=== PATIENT | male | born 1950 | race African-American/Black ===

== ENCOUNTER 2019-01-08 12:35 | Inpatient (IN) | payer MEDICARE, MEDICAID ==
[~2019-01-08] VITALS: Ht 180.3 cm; Wt 73.0 kg
[2019-01-08] MEDS ORDERED: CLOP75TA16 PO (12:44)
[2019-01-08] MEDS ORDERED: LISI2.5T47 PO (12:44)
[2019-01-08] MEDS ORDERED: ONDANSETRON HCL 4MG/2ML INJ IV STA (13:31)
[2019-01-08] MEDS ORDERED: SODIUM CHLORIDE 0.9% 1,000 ML IV ONE ×2 (13:31→15:15)
[2019-01-08 14:03] LABS: HEMATOCRIT. 40.8 % (42.0-52.0); HEMOGLOBIN. 12.7 g/dL (14.0-18.0); MEAN CORPUSCULAR HEMOGLOBIN 30.3 pg (28.0-32.0); MEAN CORPUSCULAR VOLUME 97.6 fL (80.0-94.0); MEAN PLATELET VOLUME 8.6 fl (7.4-10.4); PLATELET 278 x1000/uL (130-400); RED BLOOD CELL COUNT 4.18 mill/uL (4.7-6.1); RED CELL DISTRIBUTION WIDTH 15.5 % (11.6-14.6)
[2019-01-08 14:11] LABS: CHLORIDE 98 mEq/L (98-107)
[2019-01-08 14:22] LABS: CLARITY URINE CLEAR (CLEAR); COLOR URINE YELLOW (YELLOW); KETONES URINE 3+ (NEGATIVE); LEUKOCYTE ESTERASE URINE NEGATIVE (NEGATIVE); NITRITE URINE NEGATIVE (NEGATIVE); OCCULT BLOOD URINE NEGATIVE (NEGATIVE); PROTEIN URINE TRACE (NEGATIVE); SPECIFIC GRAVITY URINE 1.018 (1.005-1.030); UROBILINOGEN URINE 0.2 E.U./dL (0.2-1.0)
[2019-01-08 14:23] LABS: PLATELET ESTIMATE NORMAL
[2019-01-08 14:24] LABS: PROTHROMBIN TIME 10.2 sec (9.1-11.1)
[2019-01-08] MEDS ORDERED: INSULIN REGULAR (DRIP) 100 UNITS in SODIUM CHLORIDE 0.9% 100 ML IV ONE (15:00)
[2019-01-08 15:39] LABS: BG CARBOXYHEMOGLOBIN 0.3 % (0.5-1.5); BG DEOXYHEMOGLOBIN 4.1 % (0.0-5.0); BG FRACTION INSPIRED OXYGEN 21; BG METHEMOGLOBIN 0.3 % (0.0-1.5); BG OXYGEN SATURATION 95.9 % (92.0-98.5); BG OXYHEMOGLOBIN 95.3 % (94.0-97.0); BG PH 7.236 (7.350-7.450); BG SAMPLE SITE RIGHT BRACHIAL; BG TOTAL HEMOGLOBIN 11.8 g/dL (12.0-18.0); BG VENT MODE ROOM AIR
[2019-01-08] MEDS ORDERED: INSULIN REGULAR (DRIP) 100 UNITS in SODIUM CHLORIDE 0.9% 99 ML IV ONE (16:00)
[2019-01-08] MEDS ORDERED: IOHEXOL-300 100 ML BOTTLE ONE (17:27)
[2019-01-08] MEDS ORDERED: ACETAMINOPHEN 325MG TABLET PO PRN (18:00)
[2019-01-08] MEDS ORDERED: ONDANSETRON HCL 4MG/2ML INJ IV PRN (18:00)
[2019-01-08] MEDS: SODIUM CHLORIDE 0.9% 1,000 ML IV SCH ×2 (18:10→23:00)
[2019-01-08 18:52] LABS: CHLORIDE 101 mEq/L (98-107)
[2019-01-08 23:27] LABS: CHLORIDE 107 mEq/L (98-107)
[2019-01-09] MEDS: SODIUM CHLORIDE 0.9% 1,000 ML IV SCH ×2 (04:00→08:22)
[2019-01-09 04:28] LABS: BASOPHILS % 0.3 % (0.0-2.0); HEMATOCRIT. 36.1 % (42.0-52.0); HEMOGLOBIN. 11.8 g/dL (14.0-18.0); LYMPHOCYTES % 8.4 % (20.0-50.0); MEAN CORPUSCULAR HEMOGLOBIN 30.1 pg (28.0-32.0); MEAN CORPUSCULAR VOLUME 92.3 fL (80.0-94.0); MEAN PLATELET VOLUME 7.6 fl (7.4-10.4); MONOCYTES % 5.7 % (2.0-8.0); NEUTROPHILS % 85.6 % (40.0-76.0); PLATELET 282 x1000/uL (130-400); RED BLOOD CELL COUNT 3.92 mill/uL (4.7-6.1); RED CELL DISTRIBUTION WIDTH 14.9 % (11.6-14.6)
[2019-01-09 04:38] LABS: CHLORIDE 112 mEq/L (98-107)
[2019-01-09 08:04] LABS: CHLORIDE 111 mEq/L (98-107)
[2019-01-09] MEDS ORDERED: PANTOPRAZOLE SODIUM 40 MG/VIAL IV NR (10:30)
[2019-01-09] MEDS ORDERED: TAMSULOSIN HCL 0.4MG SR CAPSULE PO NR (10:30)
[2019-01-09] MEDS: CLONIDINE 0.1MG TABLET PO PRN (10:40)
[2019-01-09] MEDS ORDERED: DEXTROSE 50% WATER 50ML SYRINGE IV PRN (10:45)
[2019-01-09] MEDS: INSULIN LISPRO 100 UNITS/ML SUBCUT SCH ×4 (13:00→21:43)
[2019-01-09] MEDS: BLOOD SUGAR DIAGNOSTIC STRIP TEST SCH ×3 (13:00→21:00)
[2019-01-09] MEDS ORDERED: PANTOPRAZOLE SODIUM 40 MG/VIAL IV SCH (13:00)
[2019-01-09 14:50] VITALS: BP 154/67
[2019-01-09] MEDS ORDERED: VANCOMYCIN 1500MG in DEXTROSE 5% WATER 250ML IV SCH (16:00)
[2019-01-09] MEDS: PIPERACILLIN/TAZ 3.375G PREMIX 50 ML IV SCH ×2 (16:43→21:44)
[2019-01-09] MEDS: CLOPIDOGREL 75MG TABLET PO SCH (16:53)
[2019-01-09] MEDS: TAMSULOSIN HCL 0.4MG SR CAPSULE PO SCH (16:54)
[2019-01-09 20:00] VITALS: BP 128/89
[2019-01-09] MEDS: METOPROLOL TARTRATE 50MG TABLET PO SCH (21:41)
[2019-01-09] MEDS: AMLODIPINE 5MG TABLET PO SCH (21:41)
[2019-01-09] MEDS: INSULIN GLARGINE UD 100 UNITS/ML SYR SUBCUT SCH (21:43)
[2019-01-09] MEDS ORDERED: INSULIN GLARGINE UD 100 UNITS/ML SYR SUBCUT SCH (22:00)
[2019-01-10] VITALS: BP 133/66
[2019-01-10 04:00] VITALS: BP 115/59
[2019-01-10] MEDS: VANCOMYCIN 750 MG PREMIX 150 ML IV SCH ×2 (06:07→17:31)
[2019-01-10] MEDS: PIPERACILLIN/TAZ 3.375G PREMIX 50 ML IV SCH ×3 (06:07→20:26)
[2019-01-10 06:52] LABS: BASOPHILS % 0.2 % (0.0-2.0); HEMATOCRIT. 33.7 % (42.0-52.0); HEMOGLOBIN. 11.1 g/dL (14.0-18.0); MEAN CORPUSCULAR HEMOGLOBIN 30.6 pg (28.0-32.0); MEAN CORPUSCULAR VOLUME 92.7 fL (80.0-94.0); MONOCYTES % 5.8 % (2.0-8.0); PLATELET 253 x1000/uL (130-400); RED BLOOD CELL COUNT 3.63 mill/uL (4.7-6.1); RED CELL DISTRIBUTION WIDTH 14.7 % (11.6-14.6)
[2019-01-10 06:58] LABS: CHLORIDE 111 mEq/L (98-107)
[2019-01-10] MEDS: BLOOD SUGAR DIAGNOSTIC STRIP TEST SCH ×4 (07:53→21:00)
[2019-01-10 08:00] VITALS: BP 130/64
[2019-01-10] MEDS: INSULIN LISPRO 100 UNITS/ML SUBCUT SCH ×6 (08:45→17:50)
[2019-01-10] MEDS ORDERED: PANTOPRAZOLE SODIUM 40 MG/VIAL IV SCH (09:00)
[2019-01-10] MEDS: INSULIN GLARGINE UD 100 UNITS/ML SYR SUBCUT SCH (10:00)
[2019-01-10] MEDS: METOPROLOL TARTRATE 50MG TABLET PO SCH ×2 (10:10→20:27)
[2019-01-10] MEDS: CLOPIDOGREL 75MG TABLET PO SCH (10:10)
[2019-01-10] MEDS: AMLODIPINE 5MG TABLET PO SCH ×2 (10:10→20:27)
[2019-01-10] MEDS: TAMSULOSIN HCL 0.4MG SR CAPSULE PO SCH (10:11)
[2019-01-10 11:51] VITALS: BP 135/69
[2019-01-10 16:00] VITALS: BP 165/72
[2019-01-10 20:00] VITALS: BP 179/84
[2019-01-11] VITALS: BP 162/74
[2019-01-11] MEDS: INSULIN GLARGINE UD 100 UNITS/ML SYR SUBCUT SCH ×2 (00:45→11:01)
[2019-01-11] MEDS: INSULIN LISPRO 100 UNITS/ML SUBCUT SCH ×3 (00:45→10:08)
[2019-01-11] MEDS: CLONIDINE 0.1MG TABLET PO PRN (00:50)
[2019-01-11 04:00] VITALS: BP 121/67
[2019-01-11] MEDS: PIPERACILLIN/TAZ 3.375G PREMIX 50 ML IV SCH (05:57)
[2019-01-11] MEDS: VANCOMYCIN 750 MG PREMIX 150 ML IV SCH (05:57)
[2019-01-11 06:31] LABS: BASOPHILS % 0.2 % (0.0-2.0); EOSINOPHILS % 0.1 % (0.0-5.0); HEMATOCRIT. 33.2 % (42.0-52.0); LYMPHOCYTES % 15.9 % (20.0-50.0); MEAN CORPUSCULAR HEMOGLOBIN 30.7 pg (28.0-32.0); MEAN CORPUSCULAR VOLUME 92.4 fL (80.0-94.0); MEAN PLATELET VOLUME 8.2 fl (7.4-10.4); MONOCYTES % 5.1 % (2.0-8.0); NEUTROPHILS % 78.7 % (40.0-76.0); PLATELET 229 x1000/uL (130-400)
[2019-01-11] MEDS: BLOOD SUGAR DIAGNOSTIC STRIP TEST SCH (07:20)
[2019-01-11 08:08] LABS: CHLORIDE 107 mEq/L (98-107)
[2019-01-11] MEDS: TAMSULOSIN HCL 0.4MG SR CAPSULE PO SCH (09:49)
[2019-01-11] MEDS: AMLODIPINE 5MG TABLET PO SCH (09:50)
[2019-01-11] MEDS: CLOPIDOGREL 75MG TABLET PO SCH (09:50)
[2019-01-11] MEDS: METOPROLOL TARTRATE 50MG TABLET PO SCH (09:50)
[2019-01-11 11:14] VITALS: BP 129/63
== END 2019-01-11 12:18 | disposition home or self-care (01) | DRG 871 ==
LOC: ER 12:35 → 6EST 15:04 → EDBEDREQ 01-09 11:10 → EDBEDREQSVC 01-09 11:10 → ENRESERV 01-09 11:12
PROVIDERS: ADMIT Internal Medicine; ATTEND Internal Medicine
DX: A41.9 Sepsis, unspecified organism (principal); G93.41 Metabolic encephalopathy; E87.1 Hypo-osmolality and hyponatremia; K76.0 Fatty (change of) liver, not elsewhere classified; E11.9 Type 2 diabetes mellitus without complications; I10 Essential (primary) hypertension; D64.9 Anemia, unspecified; Z79.4 Long term (current) use of insulin; Z86.73 Personal history of transient ischemic attack (TIA), and cerebral infarction without residual deficits
CPT/HCPCS: 36415; 36600; 71045; 74177; 80048; 80202; 82010; 82374; 82375; 82805; 82962; 83036; 83605; 84145; 84484; 93970; 96361; 96365; 96375; 99291; C9113; J1815; J2405; J2543; J3370; J7030; J7050; J7060; Q9967

== ENCOUNTER 2020-02-18 09:21 | Inpatient (IN) | payer MEDICARE, MEDICAID ==
[~2020-02-18] VITALS: Ht 172.7 cm; Wt 63.0 kg
[2020-02-18] VITALS (16 sets, daily range): BP systolic 115–147; BP diastolic 64–82
[~2020-02-18 09:21] MED LIST: CLOP75TA4 PO
[2020-02-18] MEDS ORDERED: SODIUM CHLORIDE 0.9% 1,000 ML IV ONE ×3 (09:39→10:45)
[2020-02-18 09:59] LABS: BASOPHILS % 0.7 % (0.0-2.0); EOSINOPHILS % 0.2 % (0.0-5.0); HEMATOCRIT. 42.9 % (42.0-52.0); HEMOGLOBIN. 12.2 g/dL (14.0-18.0); LYMPHOCYTES % 13.3 % (20.0-50.0); MEAN CORPUSCULAR HEMOGLOBIN 32.1 pg (28.0-32.0); MEAN CORPUSCULAR VOLUME 112.4 fL (80.0-94.0); MEAN PLATELET VOLUME 8.3 fl (7.4-10.4); MONOCYTES % 2.8 % (2.0-8.0); PLATELET 330 x1000/uL (130-400); RED BLOOD CELL COUNT 3.81 mill/uL (4.7-6.1); RED CELL DISTRIBUTION WIDTH 18.1 % (11.6-14.6)
[2020-02-18 10:09] LABS: CHLORIDE 94 mEq/L (98-107)
[2020-02-18 10:23] LABS: BETA HYDROXYBUTYRATE > 10.0 mMol/L (0.0-0.3)
[2020-02-18 10:31] LABS: BG BASE EXCESS -25.8 mmol/L (-2.0-2.0); BG CARBOXYHEMOGLOBIN 0.3 % (0.5-1.5); BG FRACTION INSPIRED OXYGEN 21; BG HCO3 ACT 2.7 mmol/L (22.0-26.0); BG METHEMOGLOBIN 0.3 % (0.0-1.5); BG OXYHEMOGLOBIN 97.4 % (94.0-97.0); BG PH 7.042 (7.350-7.450); BG SAMPLE SITE RIGHT RADIAL; BG TOTAL HEMOGLOBIN 11.9 g/dL (12.0-18.0); BG VENT MODE ROOM AIR
[2020-02-18 10:44] LABS: PLATELET ESTIMATE NORMAL
[2020-02-18] MEDS ORDERED: SODIUM BICARBONATE 8.4% 1 MEQ/ML 50ML SYR IV ONE ×2 (10:45→11:30)
[2020-02-18] MEDS ORDERED: INSULIN REGULAR (DRIP) 100 UNITS in SODIUM CHLORIDE 0.9% 99 ML IV ONE (10:45)
[2020-02-18] MEDS ORDERED: CALCIUM GLUCONATE 100MG/ML 10ML VIAL IV ONE (11:00)
[2020-02-18] MEDS ORDERED: INSULIN REGULAR (DRIP) 100 UNITS in SODIUM CHLORIDE 0.9% 99 ML IV NR (11:00)
[2020-02-18] MEDS ORDERED: ONDANSETRON HCL 4MG/2ML INJ IV STA (11:17)
[2020-02-18] MEDS ORDERED: MORPHINE SULFATE 4 MG/ML CPJ (NOT FOR IM USE) IV STA (11:17)
[2020-02-18] MEDS: SODIUM CHLORIDE 0.9% 1,000 ML IV SCH ×2 (11:18→15:58)
[2020-02-18] MEDS ORDERED: INSULIN REGULAR (DRIP) 100 UNITS in SODIUM CHLORIDE 0.9% 100 ML IV SCH ×2 (11:18→15:00)
[2020-02-18] MEDS ORDERED: MAGNESIUM/ALUMINUM HYDROXIDE/SIMETHICONE 30ML UDC PO PRN (11:30)
[2020-02-18] MEDS ORDERED: DEXTROSE 50% WATER 50ML SYRINGE IV PRN (11:30)
[2020-02-18] MEDS ORDERED: ACETAMINOPHEN 325MG TABLET PO PRN ×2 (11:30)
[2020-02-18] MEDS ORDERED: IPRATROPIUM/ALBUTEROL 0.5-3(2.5)MG/3ML NEB ORI PRN (11:30)
[2020-02-18] MEDS ORDERED: ONDANSETRON HCL 4MG/2ML INJ IV PRN (11:30)
[2020-02-18] MEDS ORDERED: GUAIFENESIN 200MG/10ML SUGAR FREE UDC PO PRN (11:30)
[2020-02-18] MEDS ORDERED: ZOLPIDEM TARTRATE 5MG TABLET PO PRN (11:30)
[2020-02-18] MEDS: ENOXAPARIN 40MG/0.4ML SYR SUBCUT SCH (12:00)
[2020-02-18] MEDS ORDERED: LEVOFLOXACIN 500MG PREMIX 100ML IV NR (12:00)
[2020-02-18] MEDS: BLOOD SUGAR DIAGNOSTIC STRIP TEST SCH ×12 (12:01→23:43)
[2020-02-18 12:14] LABS: CLARITY URINE CLEAR (CLEAR); COLOR URINE YELLOW (YELLOW); KETONES URINE 3+ (NEGATIVE); LEUKOCYTE ESTERASE URINE NEGATIVE (NEGATIVE); NITRITE URINE NEGATIVE (NEGATIVE); OCCULT BLOOD URINE NEGATIVE (NEGATIVE); PROTEIN URINE 1+ (NEGATIVE); SPECIFIC GRAVITY URINE 1.021 (1.005-1.030); UROBILINOGEN URINE 0.2 E.U./dL (0.2-1.0)
[2020-02-18 12:34] LABS: *COCAINE SCREEN URINE NEGATIVE (NEGATIVE); METHADONE URINE SCREEN NEGATIVE (NEGATIVE); OPIATES URINE SCREEN NEGATIVE (NEGATIVE)
[2020-02-18 12:35] LABS: *AMPHETAMINES SCREEN URINE NEGATIVE (NEGATIVE); *BARBITURATES SCREEN URINE NEGATIVE (NEGATIVE); *BENZODIAZEPINES SCREEN URINE NEGATIVE (NEGATIVE); CANNABINOID URINE SCREEN NEGATIVE (NEGATIVE); PHENCYCLIDINE URINE SCREEN NEGATIVE (NEGATIVE)
[2020-02-18] MEDS ORDERED: KETOROLAC 15MG/ML VIAL IV PRN (14:02)
[2020-02-18] MEDS ORDERED: ASPI-1497 PO (15:38)
[2020-02-18] MEDS ORDERED: METO5TAB86 MT (15:38)
[2020-02-18 16:53] LABS: CREATINE KINASE 518 IU/L (39-308); CREATINE KINASE MB FRACTION 1.7 ng/mL (0.5-3.6)
[2020-02-18 17:00] LABS: CHLORIDE 107 mEq/L (98-107)
[2020-02-18 17:05] LABS: PHOSPHORUS 2.7 mg/dL (2.5-4.9)
[2020-02-18 17:08] LABS: TOTAL IRON BINDING CAPACITY 338 ug/dL (250-450)
[2020-02-18] MEDS ORDERED: POTASSIUM CHLORIDE 20MEQ/PACKET PO NR (17:47)
[2020-02-18 19:21] LABS: CHLORIDE 110 mEq/L (98-107)
[2020-02-18 19:41] LABS: FOLIC ACID (FOLATE) SERUM 12.9 ng/mL (>5.38)
[2020-02-18] MEDS ORDERED: DEXT 5%/0.2% NACL KCL 20MEQ/L 1,000 ML IV SCH (20:30)
[2020-02-18] MEDS: DEXTROSE 50% WATER 50ML SYRINGE IV PRN (21:10)
[2020-02-18] MEDS: FAMOTIDINE 20MG TABLET PO SCH (21:27)
[2020-02-18] MEDS: ASCORBIC ACID 500 MG TABLET PO SCH (21:27)
[2020-02-18] MEDS: DEXT 5%/0.9% NACL KCL 20MEQ/L 1,000 ML IV SCH (22:54)
[2020-02-19] VITALS (32 sets, daily range): BP systolic 113–185; BP diastolic 59–93
[2020-02-19 00:47] LABS: CREATINE KINASE MB FRACTION 2.3 ng/mL (0.5-3.6)
[2020-02-19 00:58] LABS: CHLORIDE 112 mEq/L (98-107)
[2020-02-19] MEDS: BLOOD SUGAR DIAGNOSTIC STRIP TEST SCH ×11 (01:12→21:18)
[2020-02-19] MEDS: DEXT 5%/0.9% NACL KCL 20MEQ/L 1,000 ML IV SCH (05:14)
[2020-02-19 05:52] LABS: BASOPHILS % 0.1 % (0.0-2.0); EOSINOPHILS % 0.7 % (0.0-5.0); HEMATOCRIT. 31.1 % (42.0-52.0); HEMOGLOBIN. 10.5 g/dL (14.0-18.0); MEAN CORPUSCULAR HEMOGLOBIN 32.5 pg (28.0-32.0); MEAN CORPUSCULAR VOLUME 96.4 fL (80.0-94.0); MEAN PLATELET VOLUME 7.4 fl (7.4-10.4); MONOCYTES % 7.9 % (2.0-8.0); NEUTROPHILS % 68.3 % (40.0-76.0); PLATELET 268 x1000/uL (130-400); RED BLOOD CELL COUNT 3.22 mill/uL (4.7-6.1); RED CELL DISTRIBUTION WIDTH 16.5 % (11.6-14.6)
[2020-02-19 06:38] LABS: CHLORIDE 114 mEq/L (98-107)
[2020-02-19] MEDS ORDERED: DEXTROSE 50% WATER 50ML SYRINGE IV PRN (07:00)
[2020-02-19] MEDS ORDERED: POTASSIUM PHOS,M-BASIC-D-BASIC 30 MMOL in DEXTROSE 5% WATER 1,000 ML IV SCH (07:00)
[2020-02-19] MEDS ORDERED: LIDOCAINE HCL 1% 20ML VIAL (Pyxis) INJ ONE (08:11)
[2020-02-19] MEDS: INSULIN LISPRO 100 UNITS/ML SUBCUT SCH ×7 (08:20→21:00)
[2020-02-19 09:02] LABS: CHLORIDE 112 mEq/L (98-107)
[2020-02-19 09:13] LABS: PHOSPHORUS 1.9 mg/dL (2.5-4.9)
[2020-02-19] MEDS: ASCORBIC ACID 500 MG TABLET PO SCH ×2 (09:14→21:25)
[2020-02-19] MEDS: FAMOTIDINE 20MG TABLET PO SCH ×2 (09:14→21:25)
[2020-02-19] MEDS ORDERED: LEVOFLOXACIN 500MG PREMIX 100 ML IV SCH (11:00)
[2020-02-19] MEDS: INSULIN GLARGINE UD 100 UNITS/ML SYR SUBCUT SCH (11:03)
[2020-02-19] MEDS: ENOXAPARIN 40MG/0.4ML SYR SUBCUT SCH (11:19)
[2020-02-19] MEDS: LEVOFLOXACIN 500MG PREMIX 100 ML IV SCH (14:21)
[2020-02-19] MEDS: CLONIDINE 0.1MG TABLET PO PRN (17:11)
[2020-02-19 21:43] LABS: CHLORIDE 108 mEq/L (98-107)
[2020-02-20] VITALS (32 sets, daily range): BP systolic 92–178; BP diastolic 55–93
[2020-02-20 05:59] LABS: CHLORIDE 105 mEq/L (98-107)
[2020-02-20 06:02] LABS: BASOPHILS % 0.2 % (0.0-2.0); EOSINOPHILS % 1.1 % (0.0-5.0); HEMATOCRIT. 28.9 % (42.0-52.0); HEMOGLOBIN. 9.8 g/dL (14.0-18.0); LYMPHOCYTES % 28.8 % (20.0-50.0); MEAN CORPUSCULAR HEMOGLOBIN 32.7 pg (28.0-32.0); MEAN CORPUSCULAR VOLUME 96.8 fL (80.0-94.0); MEAN PLATELET VOLUME 7.8 fl (7.4-10.4); MONOCYTES % 6.4 % (2.0-8.0); NEUTROPHILS % 63.5 % (40.0-76.0); PLATELET 196 x1000/uL (130-400); RED BLOOD CELL COUNT 2.99 mill/uL (4.7-6.1); RED CELL DISTRIBUTION WIDTH 16.2 % (11.6-14.6)
[2020-02-20] MEDS: CLONIDINE 0.1MG TABLET PO PRN (06:08)
[2020-02-20] MEDS: INSULIN LISPRO 100 UNITS/ML SUBCUT SCH ×7 (07:50→21:00)
[2020-02-20] MEDS: BLOOD SUGAR DIAGNOSTIC STRIP TEST SCH ×4 (08:30→21:38)
[2020-02-20] MEDS: ASCORBIC ACID 500 MG TABLET PO SCH ×2 (08:58→21:56)
[2020-02-20] MEDS: FAMOTIDINE 20MG TABLET PO SCH ×2 (08:58→21:55)
[2020-02-20] MEDS: INSULIN GLARGINE UD 100 UNITS/ML SYR SUBCUT SCH (10:34)
[2020-02-20] MEDS ORDERED: POTASSIUM PHOS,M-BASIC-D-BASIC 15 MMOL in DEXT 5% WATER 245 ML IV SCH (11:00)
[2020-02-20] MEDS: ENOXAPARIN 40MG/0.4ML SYR SUBCUT SCH (12:29)
[2020-02-20] MEDS: LEVOFLOXACIN 500MG PREMIX 100 ML IV SCH (12:29)
[2020-02-21] VITALS (12 sets, daily range): BP systolic 95–163; BP diastolic 54–94
[2020-02-21] MEDS: INSULIN LISPRO 100 UNITS/ML SUBCUT SCH ×7 (08:00→21:00)
[2020-02-21] MEDS: BLOOD SUGAR DIAGNOSTIC STRIP TEST SCH ×4 (08:20→21:47)
[2020-02-21] MEDS: DEXTROSE 50% WATER 50ML SYRINGE IV PRN (08:48)
[2020-02-21] MEDS: ASCORBIC ACID 500 MG TABLET PO SCH ×3 (09:32→22:03)
[2020-02-21] MEDS: FAMOTIDINE 20MG TABLET PO SCH ×4 (09:32→22:03)
[2020-02-21] MEDS: INSULIN GLARGINE UD 100 UNITS/ML SYR SUBCUT SCH (10:00)
[2020-02-21] MEDS: ENOXAPARIN 40MG/0.4ML SYR SUBCUT SCH (12:01)
[2020-02-21] MEDS: LEVOFLOXACIN 500MG PREMIX 100 ML IV SCH (18:05)
[2020-02-22] VITALS (12 sets, daily range): BP systolic 102–152; BP diastolic 60–90
[2020-02-22] MEDS: BLOOD SUGAR DIAGNOSTIC STRIP TEST SCH ×4 (07:30→20:59)
[2020-02-22] MEDS: INSULIN LISPRO 100 UNITS/ML SUBCUT SCH ×7 (08:00→20:59)
[2020-02-22] MEDS: FAMOTIDINE 20MG TABLET PO SCH ×2 (09:06→20:56)
[2020-02-22] MEDS: ASCORBIC ACID 500 MG TABLET PO SCH ×2 (09:07→20:56)
[2020-02-22] MEDS: DOCUSATE SODIUM 100MG CAPSULE PO PRN (09:07)
[2020-02-22] MEDS: INSULIN GLARGINE UD 100 UNITS/ML SYR SUBCUT SCH (09:11)
[2020-02-22] MEDS ORDERED: LEVOFLOXACIN 500MG TABLET PO SCH (11:00)
[2020-02-22] MEDS: ENOXAPARIN 40MG/0.4ML SYR SUBCUT SCH (11:30)
[2020-02-22] MEDS: DEXTROSE 50% WATER 50ML SYRINGE IV PRN (17:41)
[2020-02-23] VITALS (7 sets, daily range): BP systolic 98–135; BP diastolic 57–83
[2020-02-23] MEDS: BLOOD SUGAR DIAGNOSTIC STRIP TEST SCH ×4 (06:45→20:40)
[2020-02-23] MEDS: INSULIN LISPRO 100 UNITS/ML SUBCUT SCH ×7 (07:30→20:40)
[2020-02-23] MEDS: INSULIN GLARGINE UD 100 UNITS/ML SYR SUBCUT SCH (09:19)
[2020-02-23] MEDS: ASCORBIC ACID 500 MG TABLET PO SCH ×2 (09:33→20:35)
[2020-02-23] MEDS: FAMOTIDINE 20MG TABLET PO SCH ×2 (09:33→20:35)
[2020-02-23] MEDS: ENOXAPARIN 40MG/0.4ML SYR SUBCUT SCH (11:55)
[2020-02-23] MEDS: DOCUSATE SODIUM 100MG CAPSULE PO PRN (22:56)
[2020-02-24] VITALS (10 sets, daily range): BP systolic 89–149; BP diastolic 56–83
[2020-02-24] MEDS: BLOOD SUGAR DIAGNOSTIC STRIP TEST SCH ×4 (06:36→20:58)
[2020-02-24] MEDS: INSULIN LISPRO 100 UNITS/ML SUBCUT SCH ×7 (07:30→21:00)
[2020-02-24] MEDS ORDERED: INSU100V3 SUBCUT (08:32)
[2020-02-24] MEDS ORDERED: BENA20TA10 MT (08:32)
[2020-02-24] MEDS ORDERED: AMLO10TA80 MT (08:32)
[2020-02-24] MEDS ORDERED: TAMS-11 MT (08:32)
[2020-02-24] MEDS ORDERED: HUM100IN SQ (08:32)
[2020-02-24] MEDS: METOPROLOL TARTRATE 25MG TABLET PO SCH ×2 (09:01→20:58)
[2020-02-24] MEDS: ASCORBIC ACID 500 MG TABLET PO SCH ×2 (09:26→20:58)
[2020-02-24] MEDS: FAMOTIDINE 20MG TABLET PO SCH ×2 (09:26→20:58)
[2020-02-24] MEDS: INSULIN GLARGINE UD 100 UNITS/ML SYR SUBCUT SCH (10:13)
[2020-02-24] MEDS: ENOXAPARIN 40MG/0.4ML SYR SUBCUT SCH ×2 (12:00→12:57)
[2020-02-24] MEDS: SODIUM CHLORIDE 0.9% 1,000 ML IV SCH (13:30)
[2020-02-24 15:50] LABS: T4 FREE 1.09 ng/dL (0.76-1.46)
[2020-02-24 15:51] LABS: CREATINE KINASE 64 IU/L (39-308)
[2020-02-24 15:52] LABS: CREATINE KINASE MB FRACTION < 1.0 ng/mL (0.5-3.6)
[2020-02-24] MEDS: LACTULOSE 20G/30ML UDC PO SCH (22:52)
[2020-02-25] VITALS (7 sets, daily range): BP systolic 112–153; BP diastolic 57–83
[2020-02-25 00:11] LABS: CREATINE KINASE 62 IU/L (39-308)
[2020-02-25 00:12] LABS: CREATINE KINASE MB FRACTION < 1.0 ng/mL (0.5-3.6)
[2020-02-25] MEDS: SODIUM CHLORIDE 0.9% 1,000 ML IV SCH ×2 (04:41→14:10)
[2020-02-25] MEDS: LACTULOSE 20G/30ML UDC PO SCH ×3 (05:32→22:00)
[2020-02-25 08:13] LABS: CREATINE KINASE 50 IU/L (39-308); CREATINE KINASE MB FRACTION < 1.0 ng/mL (0.5-3.6)
[2020-02-25] MEDS: ASCORBIC ACID 500 MG TABLET PO SCH ×2 (09:10→21:53)
[2020-02-25] MEDS: FAMOTIDINE 20MG TABLET PO SCH ×2 (09:10→21:54)
[2020-02-25] MEDS: METOPROLOL TARTRATE 25MG TABLET PO SCH ×2 (09:11→21:00)
[2020-02-25] MEDS: INSULIN LISPRO 100 UNITS/ML SUBCUT SCH ×7 (09:12→21:00)
[2020-02-25] MEDS: BLOOD SUGAR DIAGNOSTIC STRIP TEST SCH ×4 (09:13→21:00)
[2020-02-25] MEDS: INSULIN GLARGINE UD 100 UNITS/ML SYR SUBCUT SCH (10:37)
[2020-02-25] MEDS: ENOXAPARIN 40MG/0.4ML SYR SUBCUT SCH (12:00)
[2020-02-26] VITALS (9 sets, daily range): BP systolic 122–134; BP diastolic 60–77
[2020-02-26] MEDS: SODIUM CHLORIDE 0.9% 1,000 ML IV SCH (01:57)
[2020-02-26] MEDS: LACTULOSE 20G/30ML UDC PO SCH (06:00)
[2020-02-26] MEDS: BLOOD SUGAR DIAGNOSTIC STRIP TEST SCH ×2 (07:30→12:04)
[2020-02-26] MEDS: INSULIN LISPRO 100 UNITS/ML SUBCUT SCH ×4 (08:00→12:09)
[2020-02-26] MEDS: FAMOTIDINE 20MG TABLET PO SCH (08:32)
[2020-02-26] MEDS: ASCORBIC ACID 500 MG TABLET PO SCH (08:32)
[2020-02-26] MEDS: METOPROLOL TARTRATE 25MG TABLET PO SCH (08:32)
[2020-02-26] MEDS: DEXTROSE 50% WATER 50ML SYRINGE IV PRN (08:44)
[2020-02-26] MEDS: INSULIN GLARGINE UD 100 UNITS/ML SYR SUBCUT SCH (10:06)
[2020-02-26] MEDS: ENOXAPARIN 40MG/0.4ML SYR SUBCUT SCH (12:10)
== END 2020-02-26 12:35 | disposition home health service (06) | DRG 91 ==
LOC: ER 09:21 → EDBEDREQ 09:49 → CVICU 10:58 → EDBEDREQSVC 11:05 → EDBEDREQ 11:05 → SUPCPDRO 11:18 → ENRESERV 12:27 → 3WST 14:23 → CVICU 14:25 → 5EST 02-20 17:15
PROVIDERS: ADMIT Internal Medicine; ATTEND Internal Medicine
PROC: 02HV33Z Insertion of Infusion Device into Superior Vena Cava, Percutaneous Approach (ICD-10-PCS; principal; 2020-02-19)
PROC: B548ZZA Ultrasonography of Superior Vena Cava, Guidance (ICD-10-PCS; 2020-02-19)
DX: G92 Toxic encephalopathy (principal); E11.00 Type 2 diabetes mellitus with hyperosmolarity without nonketotic hyperglycemic-hyperosmolar coma (NKHHC); N17.9 Acute kidney failure, unspecified; E87.1 Hypo-osmolality and hyponatremia; E44.0 Moderate protein-calorie malnutrition; I47.1 Supraventricular tachycardia; E87.5 Hyperkalemia; D63.8 Anemia in other chronic diseases classified elsewhere; I10 Essential (primary) hypertension; Z79.4 Long term (current) use of insulin; Z86.73 Personal history of transient ischemic attack (TIA), and cerebral infarction without residual deficits
CPT/HCPCS: 36415; 36600; 71045; 76937; 80048; 80053; 80061; 80305; 81003; 82010; 82375; 82550; 82553; 82607; 82746; 82805; 82962; 83036; 83540; 83550; 83735; 83880; 84100; 84439; 84443; 84484; 85025; 85379; 93005; 93306; 93970; 97116; 97162; 97166; 97530; 99291; C1725; J0610; J1650; J1815; J1956; J2270; J2405; J3490; J7030; J7050; J7060; J7070

== ENCOUNTER 2021-06-01 03:26 | Inpatient (IN) | payer MEDICARE, MEDICAID ==
[2021-06-01] VITALS (19 sets, daily range): BP systolic 110–180; BP diastolic 59–100
[~2021-06-01] VITALS: Ht 180.3 cm; Wt 63.5 kg
[~2021-06-01 03:26] MED LIST changes: +AMLO10TA80 MT; +ASPI-1497 PO; +BENA20TA10 MT; +HUM100IN SQ; +INSU100V3 SUBCUT; +METO5TAB86 MT; +TAMS-11 MT
[2021-06-01] MEDS ORDERED: SODIUM CHLORIDE 0.9% 1,000 ML IV ONE (04:30)
[2021-06-01 04:37] LABS: BASOPHILS % 1.2 % (0.0-2.0); EOSINOPHILS % 1.4 % (0.0-5.0); HEMATOCRIT. 37.8 % (42.0-52.0); HEMOGLOBIN. 12.1 g/dL (14.0-18.0); LYMPHOCYTES % 38.1 % (20.0-50.0); MEAN CORPUSCULAR HEMOGLOBIN 30.7 pg (28.0-32.0); MEAN CORPUSCULAR VOLUME 95.7 fL (80.0-94.0); MEAN PLATELET VOLUME 7.6 fl (7.4-10.4); MONOCYTES % 5.4 % (2.0-8.0); NEUTROPHILS % 53.9 % (40.0-76.0); PLATELET 312 x1000/uL (130-400); RED BLOOD CELL COUNT 3.94 mill/uL (4.7-6.1); RED CELL DISTRIBUTION WIDTH 14.3 % (11.6-14.6)
[2021-06-01 04:50] LABS: CHLORIDE 95 mEq/L (98-107)
[2021-06-01 04:57] LABS: BETA HYDROXYBUTYRATE 4.5 mMol/L (0.0-0.3)
[2021-06-01] MEDS ORDERED: INSULIN REGULAR (DRIP) 100 UNITS in SODIUM CHLORIDE 0.9% 99 ML IV SCH (05:15)
[2021-06-01 05:23] LABS: BG BASE EXCESS -3.8 mmol/L (-2.0-2.0); BG CARBOXYHEMOGLOBIN 0.5 % (0.5-1.5); BG DEOXYHEMOGLOBIN 4.7 % (0.0-5.0); BG FRACTION INSPIRED OXYGEN 21; BG HCO3 ACT 21.8 mmol/L (22.0-26.0); BG METHEMOGLOBIN 0.3 % (0.0-1.5); BG OXYGEN SATURATION 95.3 % (92.0-98.5); BG OXYHEMOGLOBIN 94.5 % (94.0-97.0); BG PCO2 41.3 mmHg (35.0-45.0); BG PO2 84.2 mmHg (75.0-100.0); BG SAMPLE SITE RIGHT RADIAL; BG TOTAL HEMOGLOBIN 12.4 g/dL (12.0-18.0); BG VENT MODE ROOM AIR
[2021-06-01 09:08] LABS: CHLORIDE 101 mEq/L (98-107)
[2021-06-01 09:13] LABS: PHOSPHORUS 2.2 mg/dL (2.5-4.9)
[2021-06-01 09:40] LABS: CLARITY URINE CLEAR (CLEAR); COLOR URINE PALE YELLOW (YELLOW); KETONES URINE 3+ (NEGATIVE); LEUKOCYTE ESTERASE URINE NEGATIVE (NEGATIVE); NITRITE URINE NEGATIVE (NEGATIVE); OCCULT BLOOD URINE TRACE (NEGATIVE); PH URINE 5.5 (4.5-8.0); PROTEIN URINE TRACE (NEGATIVE); SPECIFIC GRAVITY URINE 1.023 (1.005-1.030); UROBILINOGEN URINE 0.2 E.U./dL (0.2-1.0)
[2021-06-01] MEDS: SODIUM CHLORIDE 0.45% 1,000 ML IV SCH ×2 (10:43→20:16)
[2021-06-01] MEDS: AMLODIPINE 10MG TABLET PO SCH (11:49)
[2021-06-01] MEDS: TAMSULOSIN HCL 0.4MG SR CAPSULE PO SCH (11:49)
[2021-06-01] MEDS: ASPIRIN 81MG EC TABLET PO SCH (11:50)
[2021-06-01] MEDS: INSULIN GLARGINE UD 100 UNITS/ML SYR SUBCUT SCH ×2 (11:50→21:12)
[2021-06-01] MEDS: INSULIN LISPRO 100 UNITS/ML SUBCUT SCH ×3 (11:51→21:11)
[2021-06-01] MEDS: CLOPIDOGREL 75MG TABLET PO SCH (11:52)
[2021-06-01] MEDS: BLOOD SUGAR DIAGNOSTIC STRIP TEST SCH ×3 (12:50→21:12)
[2021-06-02] VITALS (7 sets, daily range): BP systolic 106–153; BP diastolic 60–82
[2021-06-02] MEDS: BLOOD SUGAR DIAGNOSTIC STRIP TEST SCH ×4 (06:58→21:00)
[2021-06-02] MEDS: DEXTROSE 50% WATER 50ML SYRINGE IV PRN (07:03)
[2021-06-02] MEDS: SODIUM CHLORIDE 0.45% 1,000 ML IV SCH ×2 (07:21→18:09)
[2021-06-02] MEDS: INSULIN LISPRO 100 UNITS/ML SUBCUT SCH ×4 (07:50→21:19)
[2021-06-02] MEDS: CLOPIDOGREL 75MG TABLET PO SCH (09:03)
[2021-06-02] MEDS: ASPIRIN 81MG EC TABLET PO SCH (09:03)
[2021-06-02] MEDS: AMLODIPINE 10MG TABLET PO SCH (09:04)
[2021-06-02] MEDS: TAMSULOSIN HCL 0.4MG SR CAPSULE PO SCH (09:04)
[2021-06-02] MEDS: INSULIN GLARGINE UD 100 UNITS/ML SYR SUBCUT SCH ×2 (10:25→21:20)
[2021-06-02 14:05] LABS: CHLORIDE 103 mEq/L (98-107)
[2021-06-02 14:12] LABS: PHOSPHORUS 2.7 mg/dL (2.5-4.9)
[2021-06-02 14:14] LABS: LDL CHOLESTEROL 115 mg/dL (5-100)
[2021-06-02 14:15] LABS: HDL CHOLESTEROL 64 mg/dL (40-59)
[2021-06-02 23:22] LABS: BASOPHILS % 0.8 % (0.0-2.0); EOSINOPHILS % 2.5 % (0.0-5.0); HEMATOCRIT. 31.7 % (42.0-52.0); HEMOGLOBIN. 10.5 g/dL (14.0-18.0); LYMPHOCYTES % 41.7 % (20.0-50.0); MEAN CORPUSCULAR HEMOGLOBIN 30.7 pg (28.0-32.0); MEAN CORPUSCULAR VOLUME 92.3 fL (80.0-94.0); MEAN PLATELET VOLUME 7.5 fl (7.4-10.4); MONOCYTES % 4.2 % (2.0-8.0); NEUTROPHILS % 50.8 % (40.0-76.0); PLATELET 324 x1000/uL (130-400); RED BLOOD CELL COUNT 3.43 mill/uL (4.7-6.1); RED CELL DISTRIBUTION WIDTH 14.3 % (11.6-14.6)
[2021-06-03] VITALS: BP 119/66
[2021-06-03] MEDS: DEXTROSE 50% WATER 50ML SYRINGE IV PRN (03:21)
[2021-06-03 04:00] VITALS: BP 148/82
[2021-06-03] MEDS: SODIUM CHLORIDE 0.45% 1,000 ML IV SCH ×2 (05:17→17:02)
[2021-06-03 06:35] LABS: CHLORIDE 106 mEq/L (98-107)
[2021-06-03] MEDS: BLOOD SUGAR DIAGNOSTIC STRIP TEST SCH ×4 (07:40→20:36)
[2021-06-03] MEDS: INSULIN LISPRO 100 UNITS/ML SUBCUT SCH ×4 (07:40→20:27)
[2021-06-03 08:00] VITALS: BP 134/70
[2021-06-03] MEDS: TAMSULOSIN HCL 0.4MG SR CAPSULE PO SCH (09:05)
[2021-06-03] MEDS: ASPIRIN 81MG EC TABLET PO SCH (09:05)
[2021-06-03] MEDS: AMLODIPINE 10MG TABLET PO SCH (09:05)
[2021-06-03] MEDS: CLOPIDOGREL 75MG TABLET PO SCH (09:05)
[2021-06-03 09:43] LABS: BASOPHILS % 0.4 % (0.0-2.0); EOSINOPHILS % 2.7 % (0.0-5.0); HEMATOCRIT. 31.2 % (42.0-52.0); HEMOGLOBIN. 10.4 g/dL (14.0-18.0); LYMPHOCYTES % 41.2 % (20.0-50.0); MEAN CORPUSCULAR HEMOGLOBIN 30.9 pg (28.0-32.0); MEAN CORPUSCULAR VOLUME 92.4 fL (80.0-94.0); MEAN PLATELET VOLUME 7.5 fl (7.4-10.4); MONOCYTES % 7.4 % (2.0-8.0); NEUTROPHILS % 48.3 % (40.0-76.0); PLATELET 301 x1000/uL (130-400); RED BLOOD CELL COUNT 3.38 mill/uL (4.7-6.1); RED CELL DISTRIBUTION WIDTH 14.2 % (11.6-14.6)
[2021-06-03] MEDS: INSULIN GLARGINE UD 100 UNITS/ML SYR SUBCUT SCH (09:58)
[2021-06-03 12:00] VITALS: BP 137/70
[2021-06-03 16:00] VITALS: BP 146/81
[2021-06-03 20:00] VITALS: BP 126/69
[2021-06-04] VITALS: BP 146/68
[2021-06-04] MEDS: SODIUM CHLORIDE 0.45% 1,000 ML IV SCH (03:49)
[2021-06-04 04:00] VITALS: BP 134/68
[2021-06-04 06:49] LABS: BASOPHILS % 0.7 % (0.0-2.0); EOSINOPHILS % 3.7 % (0.0-5.0); HEMATOCRIT. 31.5 % (42.0-52.0); HEMOGLOBIN. 10.6 g/dL (14.0-18.0); LYMPHOCYTES % 41.7 % (20.0-50.0); MEAN CORPUSCULAR VOLUME 92.2 fL (80.0-94.0); MEAN PLATELET VOLUME 7.7 fl (7.4-10.4); MONOCYTES % 8.2 % (2.0-8.0); NEUTROPHILS % 45.7 % (40.0-76.0); PLATELET 282 x1000/uL (130-400); RED BLOOD CELL COUNT 3.42 mill/uL (4.7-6.1); RED CELL DISTRIBUTION WIDTH 14.1 % (11.6-14.6)
[2021-06-04 06:50] LABS: CHLORIDE 107 mEq/L (98-107)
[2021-06-04] MEDS: BLOOD SUGAR DIAGNOSTIC STRIP TEST SCH ×2 (07:20→12:20)
[2021-06-04] MEDS: INSULIN LISPRO 100 UNITS/ML SUBCUT SCH ×2 (07:50→13:33)
[2021-06-04 08:00] VITALS: BP 141/79
[2021-06-04] MEDS: TAMSULOSIN HCL 0.4MG SR CAPSULE PO SCH (09:25)
[2021-06-04] MEDS: ASPIRIN 81MG EC TABLET PO SCH (09:25)
[2021-06-04] MEDS: AMLODIPINE 10MG TABLET PO SCH (09:25)
[2021-06-04] MEDS: CLOPIDOGREL 75MG TABLET PO SCH (09:25)
[2021-06-04] MEDS ORDERED: INSULIN GLARGINE UD 100 UNITS/ML SYR SUBCUT SCH (10:00)
[2021-06-04 12:00] VITALS: BP 147/72
[2021-06-04] MEDS ORDERED: LANTUSUD SUBCUT (13:16)
[2021-06-04 13:44] VITALS: BP 147/72
[2021-06-04 14:55] VITALS: BP 147/72
== END 2021-06-04 16:07 | disposition home or self-care (01) | DRG 638 ==
LOC: ER 04:04 → MICUSO 05:09 → CVICU 08:46 → 6EST 06-02 01:55
PROVIDERS: ADMIT Internal Medicine; ATTEND Internal Medicine
DX: E11.10 Type 2 diabetes mellitus with ketoacidosis without coma (principal); I47.1 Supraventricular tachycardia; I50.32 Chronic diastolic (congestive) heart failure; E44.1 Mild protein-calorie malnutrition; Z68.1 Body mass index [BMI] 19.9 or less, adult; I16.0 Hypertensive urgency; E83.39 Other disorders of phosphorus metabolism; D64.9 Anemia, unspecified; E87.5 Hyperkalemia; I11.0 Hypertensive heart disease with heart failure; Z79.4 Long term (current) use of insulin; Z82.49 Family history of ischemic heart disease and other diseases of the circulatory system; Z86.73 Personal history of transient ischemic attack (TIA), and cerebral infarction without residual deficits; Z79.899 Other long term (current) drug therapy
CPT/HCPCS: 36415; 36600; 71045; 80048; 80053; 80061; 81003; 82010; 82375; 82805; 82962; 83036; 83735; 84100; 84484; 85025; 93005; 99291; J1815; J7030; J7050

== ENCOUNTER 2021-08-08 07:06 | Inpatient (IN) | payer MEDICARE, MEDICAID ==
[2021-08-08] VITALS (32 sets, daily range): BP systolic 117–149; BP diastolic 52–83
[~2021-08-08] VITALS: Ht 180.3 cm; Wt 71.2 kg
[~2021-08-08 07:06] MED LIST changes: +CLOP-31 PO; -CLOP75TA4 PO; +LANTUSUD SUBCUT
[2021-08-08] MEDS ORDERED: SODIUM CHLORIDE 0.9% 1,000 ML IV ONE ×2 (08:00→10:00)
[2021-08-08 09:29] LABS: CHLORIDE 93 mEq/L (98-107)
[2021-08-08 09:33] LABS: BASOPHILS % 0.2 % (0.0-2.0); EOSINOPHILS % 0.1 % (0.0-5.0); HEMATOCRIT. 39.3 % (42.0-52.0); HEMOGLOBIN. 11.6 g/dL (14.0-18.0); LYMPHOCYTES % 10.2 % (20.0-50.0); MEAN CORPUSCULAR HEMOGLOBIN 30.7 pg (28.0-32.0); MEAN CORPUSCULAR VOLUME 103.5 fL (80.0-94.0); MEAN PLATELET VOLUME 8.2 fl (7.4-10.4); MONOCYTES % 4.9 % (2.0-8.0); NEUTROPHILS % 84.6 % (40.0-76.0); PLATELET 260 x1000/uL (130-400); RED CELL DISTRIBUTION WIDTH 16.1 % (11.6-14.6)
[2021-08-08 09:38] LABS: BETA HYDROXYBUTYRATE 7.4 mMol/L (0.0-0.3)
[2021-08-08 09:46] LABS: BG BASE EXCESS -16.5 mmol/L (-2.0-2.0); BG CARBOXYHEMOGLOBIN 0.2 % (0.5-1.5); BG DEOXYHEMOGLOBIN 4.5 % (0.0-5.0); BG FRACTION INSPIRED OXYGEN 21; BG HCO3 ACT 10.6 mmol/L (22.0-26.0); BG METHEMOGLOBIN 0.2 % (0.0-1.5); BG OXYGEN SATURATION 95.5 % (92.0-98.5); BG OXYHEMOGLOBIN 95.1 % (94.0-97.0); BG PCO2 29.5 mmHg (35.0-45.0); BG PH 7.174 (7.350-7.450); BG PO2 95.4 mmHg (75.0-100.0); BG SAMPLE SITE LEFT RADIAL; BG TOTAL HEMOGLOBIN 11.6 g/dL (12.0-18.0); BG VENT MODE ROOM AIR
[2021-08-08] MEDS ORDERED: INSULIN REGULAR (DRIP) 100 UNITS in SODIUM CHLORIDE 0.9% 99 ML IV SCH (10:00)
[2021-08-08] MEDS ORDERED: GUAIFENESIN 200MG/10ML SUGAR FREE UDC PO PRN (11:00)
[2021-08-08] MEDS ORDERED: ACETAMINOPHEN 325MG TABLET PO PRN ×2 (11:00)
[2021-08-08] MEDS ORDERED: ENOXAPARIN 40MG/0.4ML SYR SUBCUT SCH (11:00)
[2021-08-08] MEDS ORDERED: ZOLPIDEM TARTRATE 5MG TABLET PO PRN (11:00)
[2021-08-08] MEDS ORDERED: TRAMADOL 50MG TABLET PO PRN (11:00)
[2021-08-08] MEDS ORDERED: MAGNESIUM/ALUMINUM HYDROXIDE/SIMETHICONE 30ML UDC PO PRN (11:00)
[2021-08-08] MEDS ORDERED: DOCUSATE SODIUM 100MG CAPSULE PO PRN (11:00)
[2021-08-08] MEDS ORDERED: ONDANSETRON HCL 4MG/2ML INJ IV PRN (11:00)
[2021-08-08] MEDS ORDERED: NITROGLYCERIN 0.4MG TABLET SL SL PRN (11:00)
[2021-08-08] MEDS ORDERED: IPRATROPIUM/ALBUTEROL 0.5-3(2.5)MG/3ML NEB NEB PRN (11:00)
[2021-08-08 11:10] LABS: T4 FREE 1.29 ng/dL (0.76-1.46)
[2021-08-08 11:36] LABS: VITAMIN B12 SERUM 1277 pg/mL (211-911)
[2021-08-08 11:39] LABS: FOLIC ACID (FOLATE) SERUM > 20.00 ng/mL (>5.38)
[2021-08-08] MEDS ORDERED: ENOXAPARIN 30MG/0.3ML SYR SUBCUT SCH (12:00)
[2021-08-08] MEDS: SODIUM CHLORIDE 0.9% 1,000 ML IV SCH ×2 (12:28→17:24)
[2021-08-08] MEDS ORDERED: INSULIN REGULAR (DRIP) 100 UNITS in SODIUM CHLORIDE 0.9% 100 ML IV SCH ×2 (13:15→15:00)
[2021-08-08] MEDS: BLOOD SUGAR DIAGNOSTIC STRIP TEST SCH ×10 (14:00→23:50)
[2021-08-08] MEDS ORDERED: DEXT 5%/0.9% NACL 1,000 ML IV SCH (21:30)
[2021-08-08] MEDS ORDERED: NALOXONE HCL 0.4MG/ML VIAL IV PRN (21:45)
[2021-08-08] MEDS: DEXTROSE 50% WATER 50ML SYRINGE IV PRN (23:02)
[2021-08-09] VITALS (60 sets, daily range): BP systolic 121–204; BP diastolic 60–114
[2021-08-09] MEDS: BLOOD SUGAR DIAGNOSTIC STRIP TEST SCH ×12 (00:59→10:55)
[2021-08-09] MEDS: DEXTROSE 50% WATER 50ML SYRINGE IV PRN ×2 (00:59→17:42)
[2021-08-09 01:25] LABS: CREATINE KINASE MB FRACTION 2.2 ng/mL (0.5-3.6)
[2021-08-09] MEDS: DEXT 5%/0.9% NACL KCL 20MEQ/L 1,000 ML IV SCH ×2 (01:37→08:19)
[2021-08-09 07:02] LABS: BASOPHILS % 0.4 % (0.0-2.0); EOSINOPHILS % 0.1 % (0.0-5.0); HEMATOCRIT. 31.9 % (42.0-52.0); HEMOGLOBIN. 10.8 g/dL (14.0-18.0); LYMPHOCYTES % 12.6 % (20.0-50.0); MEAN CORPUSCULAR HEMOGLOBIN 31.1 pg (28.0-32.0); MEAN CORPUSCULAR VOLUME 91.8 fL (80.0-94.0); MEAN PLATELET VOLUME 7.5 fl (7.4-10.4); MONOCYTES % 11.9 % (2.0-8.0); PLATELET 264 x1000/uL (130-400); RED BLOOD CELL COUNT 3.47 mill/uL (4.7-6.1)
[2021-08-09 07:10] LABS: CHLORIDE 116 mEq/L (98-107)
[2021-08-09 07:16] LABS: PHOSPHORUS 2.6 mg/dL (2.5-4.9)
[2021-08-09] MEDS: PANTOPRAZOLE SODIUM 40 MG/VIAL IV SCH (09:56)
[2021-08-09] MEDS ORDERED: DEXTROSE 50% WATER 50ML SYRINGE IV PRN (10:15)
[2021-08-09] MEDS: INSULIN GLARGINE UD 100 UNITS/ML SYR SUBCUT SCH (10:54)
[2021-08-09] MEDS: SODIUM CHLORIDE 0.9% 1,000 ML IV SCH (12:13)
[2021-08-09] MEDS: ENOXAPARIN 40MG/0.4ML SYR SUBCUT SCH (12:14)
[2021-08-09] MEDS: INSULIN LISPRO 100 UNITS/ML SUBCUT SCH ×5 (12:37→21:00)
[2021-08-09] MEDS ORDERED: BLOOD SUGAR DIAGNOSTIC STRIP TEST SCH (12:50)
[2021-08-09 16:49] LABS: CREATINE KINASE MB FRACTION 1.8 ng/mL (0.5-3.6)
[2021-08-09] MEDS: CLONIDINE 0.1MG TABLET PO PRN (18:44)
[2021-08-10] VITALS: BP 164/77
[2021-08-10] MEDS: SODIUM CHLORIDE 0.9% 1,000 ML IV SCH ×2 (03:09→13:56)
[2021-08-10 04:00] VITALS: BP 157/69
[2021-08-10] MEDS: DEXTROSE 50% WATER 50ML SYRINGE IV PRN ×3 (06:32→21:57)
[2021-08-10] MEDS: INSULIN LISPRO 100 UNITS/ML SUBCUT SCH ×7 (07:20→21:00)
[2021-08-10 08:00] VITALS: BP 189/100
[2021-08-10] MEDS: PANTOPRAZOLE SODIUM 40 MG/VIAL IV SCH (08:56)
[2021-08-10] MEDS: CLONIDINE 0.1MG TABLET PO PRN (08:57)
[2021-08-10] MEDS: INSULIN GLARGINE UD 100 UNITS/ML SYR SUBCUT SCH (11:32)
[2021-08-10] MEDS: ENOXAPARIN 40MG/0.4ML SYR SUBCUT SCH (11:33)
[2021-08-10 12:04] VITALS: BP 150/73
[2021-08-10 16:07] VITALS: BP 138/67
[2021-08-10 20:00] VITALS: BP 149/86
[2021-08-11] MEDS ORDERED: GLUCAGON,HUMAN RECOMBINANT 1MG/VIAL IM SCH (01:00)
[2021-08-11] MEDS: SODIUM CHLORIDE 0.9% 1,000 ML IV SCH ×2 (04:00→17:20)
[2021-08-11] MEDS: INSULIN LISPRO 100 UNITS/ML SUBCUT SCH ×7 (06:47→21:00)
[2021-08-11 08:00] VITALS: BP 182/91
[2021-08-11] MEDS: FAMOTIDINE 20MG/2ML VIAL IV SCH (09:00)
[2021-08-11] MEDS: CLONIDINE 0.1MG TABLET PO PRN ×2 (09:18→18:42)
[2021-08-11] MEDS ORDERED: INSULIN GLARGINE UD 100 UNITS/ML SYR SUBCUT SCH (10:00)
[2021-08-11 12:00] VITALS: BP 187/90
[2021-08-11] MEDS: ENOXAPARIN 40MG/0.4ML SYR SUBCUT SCH (12:00)
[2021-08-11 16:00] VITALS: BP 172/88
[2021-08-11 20:00] VITALS: BP 119/68
[2021-08-12] VITALS: BP 106/59
[2021-08-12 04:00] VITALS: BP 148/64
[2021-08-12] MEDS: INSULIN LISPRO 100 UNITS/ML SUBCUT SCH ×4 (07:20→12:50)
[2021-08-12] MEDS: SODIUM CHLORIDE 0.9% 1,000 ML IV SCH (07:32)
[2021-08-12 08:00] VITALS: BP 207/118
[2021-08-12] MEDS: FAMOTIDINE 20MG/2ML VIAL IV SCH (08:45)
[2021-08-12] MEDS: CLONIDINE 0.1MG TABLET PO PRN (08:46)
[2021-08-12 12:00] VITALS: BP 177/86
[2021-08-12] MEDS: ENOXAPARIN 40MG/0.4ML SYR SUBCUT SCH (12:00)
[2021-08-13] MEDS ORDERED: INSULIN GLARGINE UD 100 UNITS/ML SYR SUBCUT SCH (10:00)
[2023-08-08] MEDS ORDERED: DEXT 5%/0.9% NACL KCL 20MEQ/L 1,000 ML IV SCH (23:59)
== END 2021-08-12 14:55 | disposition left against medical advice (07) | DRG 637 ==
LOC: ER 07:06 → CVICU 10:21 → ENRESERV 14:19 → 6WST 08-09 23:42 → UNDODISIN 08-12 14:55
PROVIDERS: ADMIT Internal Medicine; ATTEND Internal Medicine
DX: E11.10 Type 2 diabetes mellitus with ketoacidosis without coma (principal); G92.8 Other toxic encephalopathy; N17.0 Acute kidney failure with tubular necrosis; E87.1 Hypo-osmolality and hyponatremia; D63.8 Anemia in other chronic diseases classified elsewhere; I10 Essential (primary) hypertension; E11.00 Type 2 diabetes mellitus with hyperosmolarity without nonketotic hyperglycemic-hyperosmolar coma (NKHHC); Z86.73 Personal history of transient ischemic attack (TIA), and cerebral infarction without residual deficits; Z79.4 Long term (current) use of insulin; Z91.14 Patient's other noncompliance with medication regimen; Z79.899 Other long term (current) drug therapy
CPT/HCPCS: 36415; 36600; 71045; 80053; 80061; 82010; 82375; 82550; 82553; 82607; 82746; 82805; 82962; 83036; 83540; 83550; 83735; 83930; 84100; 84439; 84443; 84484; 85025; 93005; 93970; 97162; 97166; 97535; 99291; C1893; C9113; J1610; J1650; J1815; J3490; J7030; J7050